=== PATIENT | male | born 1960 | race Caucasian/White ===

== ENCOUNTER 2024-05-06 19:03 | Observation (INO) | payer SELFPAY ==
--- NOTE | ~2024-05-06 | CT_ITS ---
EXAMINATION: CT facial bones w con DATE: 05/06/2024 23:31 INDICATION: Altered mental status. Recent mandible procedure. TECHNIQUE: Computed tomography (CT) of the facial bones and maxillofacial region was performed with 7 5 mL Omnipaque 350 intravenous contrast. Automated exposure control and iterative reconstruction tech [employer] were employed. The dose-length product was 697.20 mGy-cm. COMPARISON: None. FINDINGS: There are no pathologically enlarged lymph nodes. There is plaque in the proximal internal carotid arteries with less than 50% stenosis relative to normal distal artery lumen diameters. There is mild mucosal thickening in the paranasal sinuses. The patient is edentulous. There are dental impl ants in the mandible. No fracture. There is moderate cervical spondylosis. IMPRESSION: 1. No etiology for the patient's symptoms. Reviewed, dictated and finalized at location A.
--- NOTE | ~2024-05-06 | CT_ITS ---
EXAMINATION: CTA chest abdomen pelvis DATE: 05/07/2024 17:26 INDICATION: evaluate aneurysms . TECHNIQUE: Computed tomography angiography of the chest, abdomen, and pelvis was performed with 100 m L Omnipaque-350 intravenous contrast in the arterial phase. Automated exposure control and iterative reconstruction technique were employed. The dose-length product was 1857.94 mGy-cm. COMPARISON: A gap 05/07/2024 FINDINGS: CHEST: Thoracic aorta: Ectasia of the ascending aorta up to 4.4 cm. Ectasia of the descending aorta measurin g up to 3.3 cm. No dissection. Mild atherosclerotic calcifications. Lung parenchyma and airways: Motion artifact. Dependent atelectasis. Lungs and airways are otherwise clear. Thoracic inlet, axillae and chest wall: Mild symmetric gynecomastia. No thyroid mass. No axillary lym phadenopathy. Mediastinum: No mass or lymphadenopathy. Heart and pericardium: Aortic valve calcification. No pericardial effusion. Coronary artery calcifications: Mild. Pleura: No effusion or mass. Thoracic bones: No acute osseous finding in the chest. ABDOMEN/PELVIS: Liver: Enlarged. Biliary/Gallbladder: Distended gallbladder with mildly irregular wall thickening. No bile duct dilati on. Pancreas: Mild atrophy. Spleen: Normal. Adrenals:No mass. Kidneys: No suspicious mass, obstructing stone, or hydronephrosis. GI tract: No small or large bowel dilation. Normal appendix. Mesentery/Peritoneum: No ascites, mass, or free air. Retroperitoneum: No mass Atherosclerotic calcifications of intra-abdominal arterial vessels. Fusiform infrarenal abdominal aortic aneurysm with intraluminal thrombus, measuring up to 4.5 cm. Patent orig ins of the celiac, SMA, and bilateral renal arteries. Occluded DENISSE. Severe stenosis of the right comm on iliac artery. Severe stenosis at the origins of the left external and internal iliac arteries Pelvis: Urinary bladder wall thickening. Prostatomegaly. Dense material in the urinary bladder. Soft Tissues: Small uncomplicated umbilical hernia containing fat and a small loop of unobstructed marcy wel. Abdominopelvic bones: No acute osseous finding in the abdomen/pelvis. IMPRESSION: Ectasia of the ascending and descending aorta, measuring up to 4.4 cm and 3.3 cm respectively. Gallbladder hydrops, with mild irregular wall thickening. Correlate with biliary labs and symptoms of right upper quadrant pain. Hepatomegaly. 4.5 cm fusiform infrarenal abdominal aortic aneurysm. DENISSE occlusion. Severe stenoses at the origin of the right common iliac artery and the left iliac bifurcation. Urinary bladder wall thickening with hyperdense intraluminal material, presumably secondary to outlet compromise from prostatomegaly and contrast excretion. Correlate with urinalysis. Reviewed, dictated and finalized at location K. IMPRESSION: Ectasia of the ascending and descending aorta, measuring up to 4.4 cm and 3.3 c m respectively. Gallbladder hydrops, with mild irregular wall thickening. Correlate with biliar y labs and symptoms of right upper quadrant pain. Hepatomegaly. 4.5 cm fusiform infrarenal abdominal aortic aneurysm. DENISSE occlusion. Severe stenoses at the origin of the right common iliac artery and the left gordon ac bifurcation. Urinary bladder wall thickening with hyperdense intraluminal material, presumab ly secondary to outlet compromise from prostatomegaly and contrast excretion. C orrelate with urinalysis.
--- NOTE | ~2024-05-06 | CT_ITS ---
EXAMINATION: CT chest abdomen pelvis wo con DATE: 05/07/2024 07:42 INDICATION: Altered mental status. TECHNIQUE: Computed tomography (CT) of the chest, abdomen, and pelvis was performed without intraveno us contrast. Automated exposure control and iterative reconstruction technique were employed. The dos e-length product was 1190.16 mGy-cm. COMPARISON: None FINDINGS: CHEST CT: There is mild emphysema. The lungs demonstrate mild atelectasis. No pleural effusion. The heart size is normal. There are coronary artery calcifications. No pericardial effusion. There is mild bilateral gynecomastia. There is ectasia of ascending aorta measuring 4.7 cm. There is mild thoracic spondylos is. ABDOMEN/PELVIS CT: The liver and spleen are normal. The gallbladder is distended. The pancreas, adrenal glands, and kidn eys are normal. There is a 4.4 cm fusiform aneurysm of infrarenal aorta. There is calcified atheroscl erosis of the aorta and many of the other arteries. There are no dilated loops of bowel. The appendix is normal. There is an umbilical hernia containing nonobstructed small bowel. There are no pathologi rhiannon enlarged lymph nodes. There is no free intraperitoneal fluid. The prostate is mildly enlarged. There is severe lower lumbar spondylosis. IMPRESSION: 1. 4.4 cm fusiform aneurysm of infrarenal aorta. 2. Umbilical hernia containing nonobstructed small bowel. 3. Gallbladder distention, which may be secondary to fasting. Correlate with physical exam to exclude acute cholecystitis. Reviewed, dictated and finalized at location A. IMPRESSION: 1. 4.4 cm fusiform aneurysm of infrarenal aorta. 2. Umbilical hernia containing nonobstructed small bowel. 3. Gallbladder distention, which may be secondary to fasting. Correlate with ph ysical exam to exclude acute cholecystitis.
--- NOTE | ~2024-05-06 | US_ITS ---
EXAMINATION: US carotid duplex BIDATE: 05/07/2024 08:14 INDICATION: Stroke TECHNIQUE: Grayscale, color Doppler, and pulsed Doppler images of the cervical carotid arteries were obtained. The degree of vessel stenosis is placed in one of the following categories: normal, <50%, 5 0-69%, >=70% but less than near-occlusion, near-occlusion, or total occlusion. Note that percent sten osis relative to normal distal artery lumen diameter is indirectly measured from velocity measurement s as described by Pasquale, et al. Radiology 2003; 229:340-346. COMPARISON: None. FINDINGS: RIGHT: The right common carotid artery (CCA) peak systolic velocity (PSV) is 69 cm/s. The right internal car otid artery (ICA) PSV is 93 cm/s. The right ICA end-diastolic velocity (EDV) is 33 cm/s. The right IC A/CCA PSV ratio is 1.4. Grayscale and color Doppler images yield an estimate of <50% diameter reducti on from plaque in the ICA. The external carotid artery (ECA) PSV is 94 cm/s. There is antegrade flow in the right vertebral artery. LEFT: The left CCA PSV is 73 cm/s. The left ICA PSV is 66 cm/s. The left ICA EDV is 21 cm/s. The left ICA/C CA PSV ratio is 1.2. Grayscale and color Doppler images yield an estimate of <50% diameter reduction from plaque in the ICA. The ECA PSV is 72 cm/s. There is antegrade flow in the left vertebral artery. IMPRESSION: 1. <50% stenosis in the right internal carotid artery. 2. <50% stenosis in the left internal carotid artery. Reviewed, dictated and finalized at location B.
--- NOTE | ~2024-05-06 | XR_ITS ---
EXAMINATION: XR chest 1V portable DATE: 05/06/2024 23:15 INDICATION: Altered mental status. TECHNIQUE: A single frontal view of the chest was obtained on 2 radiographs. COMPARISON: None. FINDINGS: There is no pneumonia, pleural effusion, or pneumothorax. The heart size is normal. IMPRESSION: 1. No acute cardiopulmonary disease. Reviewed, dictated and finalized at location A.
--- NOTE | ~2024-05-06 | CT_ITS ---
EXAMINATION: CT brain wo con DATE: 05/06/2024 23:31 INDICATION: Altered mental status. TECHNIQUE: Computed tomography (CT) of the head was performed without intravenous contrast. The mA wa s adjusted according to patient size. Iterative reconstruction technique was employed. The dose-lengt h product was 681.00 mGy-cm. COMPARISON: None FINDINGS: There is no intracranial hemorrhage, acute infarction, or abnormal intracranial mass lesion . There are scattered areas of low attenuation in the cerebral white matter, which is within normal l imits for the patient's age. The ventricles are normal in size. The orbits are normal. There is mild mucosal thickening in the paranasal sinuses. There is a trace left mastoid effusion. IMPRESSION: 1. Normal aging brain. Reviewed, dictated and finalized at location A. IMPRESSION: 1. Normal aging brain.
--- NOTE | ~2024-05-06 | MR_ITS ---
EXAMINATION: MR brain/brain stem wo/w con DATE: 05/07/2024 08:48 INDICATION: Stroke. TECHNIQUE: Magnetic resonance imaging (MRI) of the brain and brainstem was performed without and with 20 mL ProHance intravenous contrast. COMPARISON: Head CT 05/06/2024 FINDINGS: There are scattered areas of nonspecific increased T2-weighted signal intensity in the cere bral white matter and armida. There is no intracranial hemorrhage, acute infarction, or abnormal intrac ranial mass lesion. The ventricles are normal in size. There is a trace left mastoid effusion. The pa ranasal sinuses are clear. The orbits are normal. IMPRESSION: 1. Mild nonspecific cerebral white matter disease and pontine disease, which likely represents chroni c small vessel ischemic disease. Reviewed, dictated and finalized at location [] IMPRESSION: 1. Mild nonspecific cerebral white matter disease and pontine disease, which penny smith represents chronic small vessel ischemic disease.
[2024-05-06 19:11] VITALS: BP 156/98; PULSE 109; RESP 14; TEMP 37.4; O2SAT 94
[2024-05-06 22:06] LABS: Basophils Percent Auto 0.3 % (0.2-1.2); Eosinophils Absolute Auto 0.3 K/mm3 (0-0.3); Eosinophils Percent Auto 2.3 % (0-4.4); Hematocrit 43.8 % (42.0-52.0); Hemoglobin 15.5 g/dL (14.0-18.0); Immature Granulocyte Absolute 0.07 K/mm3 (0.00-0.031); Immature Granulocyte Percent A 0.6 % (0-0.5); Lymphocytes Absolute Auto 1.87 K/mm3 (0.9-3.2); Lymphocytes Percent Auto 15.9 % (18.3-44.2); Mean Corpuscular HGB Conc 35.4 g/dl (32-36); Mean Corpuscular Hemoglobin 31.6 pg (26-34); Mean Corpuscular Volume 89.4 fl (80-100); Mean Platelet Volume 9.9 fl (7.4-10.4); Monocytes Absolute Auto 0.6 K/mm3 (0.1-0.6); Monocytes Percent Auto 4.9 % (2.6-8.5); Neutrophils Absolute Auto 8.9 K/mm3 (1.3-6.7); Platelet Count Result 167 k/mm3 (150-375); Red Cell Distribution Width 12.3 % (11.5-14.5); White Blood Count 11.7 K/mm3 (4.5-10.0)
--- NOTE | 2024-05-06 22:06 | ECG_ITS ---
Test Date: 2024-05-06 22:21:01 Measurements Intervals [place] Rate: 96 P: 12 CT: 176 QRS: -34 QRSD: 109 T: 39 QT: 342 QTc: 434 Interpretive Statements SINUS RHYTHM LEFT AXIS DEVIATION [QRS AXIS < -30] No previous ECG available for comparison Electronically Signed On 05-08-2024 15:22:37 CDT by Thelma Shearer M.D.
[2024-05-06 22:08] VITALS: BP 181/89; PULSE 95; RESP 15; O2SAT 95
[2024-05-06 22:16] LABS: Alanine Aminotransferase 54 U/L (6-50); Albumin Level 4.2 g/dL (3.5-5.1); Alkaline Phosphatase 72 U/L (38-126); Anion Gap 8 mmol/L (4-12); Aspartate Amino Transferase 23 U/L (17-59); Blood Urea Nitrogen 11 mg/dL (9-20); Calcium 8.9 mg/dL (8.4-10.2); Carbon Dioxide 26 mmol/L (22-30); Chloride 97 mmol/L (98-107); Estimated CRCL calculation 87 ml/min; Estimated Glomerular Filt Rate > 60; Glucose 122 mg/dL (65-110); Lipase 27 U/L (23-300); Potassium 4.6 mmol/L (3.4-5.0); Sodium 131 mmol/L (137-145)
[2024-05-06 22:18] LABS: Atypical Lymphocytes Present; Platelet Estimate Adequate (Adequate); Schistocytes None Seen
--- OUTSIDE RECORDS SUMMARY | 2024-05-06 22:41 | XMS_ITS | Clinical Summary ---
Author Organization [facility] Address [address] [place] [address] Care Team Providers Care Director Biologics Name Role Phone Unavailable Primary Care Provider Unavailabl e Social History Tobacco Use Types Packs/Day Years Used Date Smoking Tobacco: Never Assessed Sex and Gender Information Value Date Recorded Sex Assigned at Not on file Legal Sex Male 10:22 PM [employer]DEL [employer] Gender Identity Not on file Sexual Orientation Not on file Plan of Treatment Health Maintenance Due Date Last Done Comments Colorectal Cancer Screening Colonoscopy (10 Years) 1962 Annual Physical 1965 Hepatitis C 1980 DTaP, Tdap and Td Vaccines ( 1 - Tdap) 1981 Zoster Vaccines (1 of 2) 2012 COVID-19 Vaccine ( - 2023-2 5 season) 2023 Influenza Adult (#1) 2023 RSV Immunization or 60+ Years (1 - 1-dose 75+ series) 2037 Meningococcal B Vaccine Aged Out No l onger eligible based on patient's age to complete this topic Meningococcal Vaccine Aged Out No stefani rita eligible based on patient's age to complete this topic Pneumococcal Vaccine: Pediat rics (0 to 5 Years) and At-Risk Patients (6 to 64 Years) Aged Out No longer eligible b ased on patient's age to complete this topic RSV Immunizations Under 20 Months Aged Out No longer eligible based on patient's age to complete this topic
[2024-05-06] MEDS: SODIUM CHLORIDE 0.9% IV 1,000 ML 999 ML IV CONT (22:42)
[2024-05-06 23:23] LABS: Lactic Acid Reflex 1.2 mmol/L (0.7-2.0)
[2024-05-06 23:28] LABS: INR 1.1
[2024-05-06 23:29] LABS: Partial Thromboplastin Time 32.1 Seconds (22.3-36.8)
--- NOTE | 2024-05-06 23:39 | ED_ITS ---
HPI - Dizziness General Chief Complaint: Dizziness <Radha Coffey PA-C - Last Filed: 05/09/24 19:00> Stated Complaint: oral surgery 04/30, weakness, shaking <Radha Coffey PA-C - Last Filed: 05/09/24 19:00> Time Seen by Provider: 05/06/24 22:02 <Radha Coffey PA-C - Last Filed: 05/09/24 19:00> History of Present Illness HPI Narrative: 63-year-old male with a reported history of hypertension presents to the emergency department with his at bedside for dizziness and altered mental status. Patient had 4 lower teeth removed 6 days ago, 5 days ago he had permanent dentures placed on his lower gumline. The following day the patient developed dizziness, nausea and weakness. Per the over the past day the patient has become more altered and said bizarre things like ?I am going to go use the out house? instead of saying ?I am going to use the bathroom?. The patient states he feels dizzy when he goes from a lying down to sitting position and from a sitting to standing position. He reports nausea but no vomiting. His at bedside states he has not been drinking water. He endorses a low- grade fever today and generalized malaise. He is reporting pain to his lower teeth from the procedure but has not noted any drainage. He denies difficulty swallowing or breathing, chest pain or shortness of breath. He is endorsing a productive cough and states he started having body tremors yesterday and today. He denies abdominal pain, rash, dysuria or hematuria. Denies vision changes, focal numbness or weakness, head injury or trauma. Denies alcohol or drug use. Has been using ibuprofen and Tylenol for pain control postoperatively. <Radha Coffey PA-C - Last Filed: 05/09/24 19:00> Related Data Home Medications: Home Medications ?Medication ?Instructions ?Recorded ?Confirmed ?Last Taken ?Type chlorhexidine gluconate 0.12 % 15 ml PO BID 05/07/24 05/07/24 Unknown History mouthwash <Radha Coffey PA-C - Last Filed: 05/09/24 19:00> Allergies/Adverse Reactions: Allergies Allergy/AdvReac Type Severity Reaction Status Date / Time No Known Allergies Allergy Verified 05/06/24 19:17 <Radha Coffey PA-C - Last Filed: 05/09/24 19:00> Review of Systems 2 Review of Systems: All systems reviewed & are unremarkable except as noted in HPI and below <Radha Coffey PA-C - Last Filed: 05/09/24 19:00> [facility] Social History Social History: Social History Smoking packs per day: 0.5 Smoking cigarettes per day: 10.0 Years smoked: 45 Smoking pack-years: 22.50 Smoking status: Current every day smoker Tobacco type: cigarettes Alcohol intake: former Substance use: never Do You Feel Safe in your Home?: Yes Lack of Transportation: No Lack of Food: Never True Current Housing: I Have Housing Concerned About Future Housing: No Difficulty Paying Gas/Electric Bills: No Difficulty Paying for Meds: No Currently Unemployed: YES Education: High School Diploma/GED Difficulty w/ Childcare or Family Care: No Spiritual care concerns: No <Radha Coffey PA-C - Last Filed: 05/09/24 19:00> Exam 2 Narrative: GENERAL: Ill-appearing, flushed, warm to the touch HEAD: Normocephalic, atraumatic. EYES: PERRLA and EOMI. ENT: Nares clear, no rhinorrhea or epistaxis. Mucous membranes moist. Permanent dentures noted to the mandible with diffuse tenderness to the gum line, no area of fluctuance, no induration to the floor mouth or submandibular region, airway intact, posterior pharynx unremarkable, no trismus, no drooling or dysphasia NECK: Supple. No nuchal rigidity CHEST: Clear to auscultation. No respiratory distress. HEART: Regular rate and rhythm. No murmur heard. Normal peripheral pulses. ABDOMEN: Soft, nontender, nondistended, normal active bowel sounds. EXTREMITIES: Normal range of motion. No edema. SKIN: Warm, dry, no rash. NEURO: No focal deficits. Alert and oriented x1 - patient is unsure if he is in [place] or [place], states the year is 1924, when asked what month it is he states ?3? but is unable to tell me the name of the month. Cranial nerves 2-12 are intact. Strength out of 5 in BUE and BLE. Sensation intact throughout. Patient unable to follow directions to perform [id number] due to confusion. No pronator drift. <Radha Coffey PA-C - Last Filed: 05/09/24 19:00> Course TRAFFIC CONTROLLER CABLE/PA Physician Supervision PA signed patient out to me pending rest of work up to be completed; CXR unremarkable. I had been aware this patient was in [facility] and their presentation which was concerning for encephalopathy of unknown etiology. Initially there was report that patient and did not seem particularly concerned but on my bedside assessment does seem concerned that he is not himself and has not returned to baseline. COmplainign of a mild headache but no fever and moving neck. SHe notes his face became flushed and he was diaphoretic but no complaints. He had been on Augmentin after dental procedure, only 1 pill left. No evidence of abscess/obvious osteomyelitis. CT brain and facial imaging negative by report. No clear or obvious sign of infection. Discussed with [facility] conservation laborer hospitalist Dr Rivera; admission accepted. <Allison Mcdonough MD - Last Filed: 05/07/24 21:52> Vital Signs Vital signs: Vital Signs Temperature 99.3 F 05/06/24 19:11 Pulse Rate 109 H 05/06/24 19:11 Respiratory Rate 14 05/06/24 19:11 Blood Pressure 156/98 H 05/06/24 19:11 Pulse Oximetry 94 05/06/24 19:11 Oxygen Delivery Room Air 05/06/24 19:11 Temperature 97.9 F 05/09/24 04:45 Pulse Rate 95 05/09/24 08:08 Respiratory Rate 18 05/09/24 04:45 Blood Pressure 140/96 H 05/09/24 04:45 Pulse Oximetry 97 05/09/24 04:45 Oxygen Delivery Room Air 05/09/24 08:00 <Radha Coffey PA-C - Last Filed: 05/09/24 19:00> Vital Signs Temperature 99.3 F 05/06/24 19:11 Pulse Rate 109 H 05/06/24 19:11 Respiratory Rate 14 05/06/24 19:11 Blood Pressure 156/98 H 05/06/24 19:11 Pulse Oximetry 94 05/06/24 19:11 Oxygen Delivery Room Air 05/06/24 19:11 Temperature 97.9 F 05/09/24 04:45 Pulse Rate 95 05/09/24 08:08 Respiratory Rate 18 05/09/24 04:45 Blood Pressure 140/96 H 05/09/24 04:45 Pulse Oximetry 97 05/09/24 04:45 Oxygen Delivery Room Air 05/09/24 08:00 <Allison Mcdonough MD - Last Filed: 05/07/24 21:52> MDM - Dizziness MDM Narrative Medical decision making narrative: 63-year-old male with reported history of hypertension presents to the emergency department with at bedside for dizziness and nausea for 5 days, altered mental status started yesterday. Triage vitals remarkable for tachycardia 109 low-grade temp of 99.3?. Patient is flushed, warm to the touch and ill appearing on exam. He is A&O x1 which is new. No lateralizing deficits, exam significant for the above. Will obtain AMS/septic workup. Given recent oral procedure, will obtain CT facial bones with contrast to evaluate for deep space infection. His airway remains intact and he has no drooling or dysphasia. CBC with mild leukocytosis of 11.7, no bandemia. Chemistries with sodium of 131. CK is not elevated. TSH within normal limits. UA with 1+ ketones, no UTI. UDS positive for cannabinoids. ETOH less than 10. Viral swabs are negative. Lactic normal 1.2. EKG shows normal sinus rhythm, LAD, normal IN interval, normal QRS duration, normal QTC, no ischemic changes. Troponin is undetectable. CT brain shows no acute intracranial findings. CT facial bones with contrast shows no significant acute findings, no fluid collection. Patient was given a L fluids. He did have an episode of emesis in the ED and was given Zofran with improvement. He continues to remain altered. Concern for encephalopathy but currently do not have a source. Sign-out to Dr. Mcdonough pending stat-rad read of CXR. <Radha Coffey PA-C - Last Filed: 05/09/24 19:00> Lab Data Result diagrams: 05/09/24 04:37 05/09/24 04:37 <Radha Coffey PA-C - Last Filed: 05/09/24 19:00> Labs: Lab Results 05/06/24 05/06/24 05/06/24 Range/Units 21:59 22:55 23:46 WBC 11.7 H (4.5-10.0) K/mm3 RBC 4.90 (4.6-6.20) M/mm3 Hgb 15.5 (14.0-18.0) g/dL Hct 43.8 (42.0-52.0) % MCV 89.4 (80-100) fl MCH 31.6 (26-34) pg MCHC 35.4 (32-36) g/dl RDW 12.3 (11.5-14.5) % Plt Count 167 (150-375) k/mm3 MPV 9.9 (7.4-10.4) fl Immature Gran % (Auto) 0.6 H (0-0.5) % Neut % (Auto) 76.0 H (45.5-73.1) % Lymph % (Auto) 15.9 L (18.3-44.2) % [place] % (Auto) 4.9 (2.6-8.5) % Eos % (Auto) 2.3 (0-4.4) % Baso % (Auto) 0.3 (0.2-1.2) % Lymph # (Auto) 1.87 (0.9-3.2) K/mm3 [place] # (Auto) 0.6 (0.1-0.6) K/mm3 Eos # (Auto) 0.3 (0-0.3) K/mm3 Baso # (Auto) 0.0 (0.0-0.1) K/mm3 Abs Immat Gran (auto) 0.07 H (0.00-0.031) K/mm3 Absolute Neuts (auto) 8.9 H (1.3-6.7) K/mm3 Absolute Nucleated RBC 0.000 (0.0-0.012) K/mm3 Band Neutrophils % Not Reportable Nucleated RBC % 0.0 (0.0-0.2) % Atypical Lymphocytes Present Platelet Estimate Adequate (Adequate) Schistocytes None seen PT 14.0 (11.1-14.7) Seconds INR 1.1 APTT 32.1 (22.3-36.8) Seconds Sodium 131 L (137-145) mmol/L Potassium 4.6 (3.4-5.0) mmol/L Chloride 97 L (98-107) mmol/L Carbon Dioxide 26 (22-30) mmol/L Anion Gap 8 (4-12) mmol/L BUN 11 (9-20) mg/dL Creatinine 1.00 (0.7-1.3) mg/dL Estim Creat Clear Calc 87 ml/min Estimated GFR > 60 (59 - ) Glucose 122 H (65-110) mg/dL Lactic Acid 1.2 (0.7-2.0) mmol/L Calcium 8.9 (8.4-10.2) mg/dL Total Bilirubin 1.0 (0.2-1.3) mg/dL AST 23 (17-59) U/L ALT 54 H (6-50) U/L Alkaline Phosphatase 72 (38-126) U/L Total Creatine Kinase 32 L (55-170) U/L Troponin I < 0.012 (0.000-0.034) ng/mL Total Protein 7.0 (6.3-8.2) g/dL Albumin 4.2 (3.5-5.1) g/dL Lipase 27 (23-300) U/L TSH 0.820 (0.465-4.680) uIU/mL Urine Color Yellow (Yellow) Urine Appearance Clear (Clear) Urine pH 7.5 (5.0-9.0) Ur Specific [place] 1.023 (1.001-1.035) Urine Protein Negative (Negative) mg/dL Urine Glucose (UA) Negative (Negative) mg/dL Urine Ketones 1+ H (Negative) mg/dL Ur Blood (Man) Negative (Negative) Urine Nitrate Negative (Negative) Urine Bilirubin Negative (Negative) Urine Urobilinogen 1.0 (<2.0) mg/dL Leukocyte Esterase Rfl Negative (Negative) ANTOINE/UL Urine Opiates Screen Negative (Negative) Urine Methadone Screen Negative (Negative) Ur Barbiturates Screen Negative (Negative) Ur Phencyclidine Scrn Negative (Negative) Ur Amphetamine Screen Negative (Negative) U Benzodiazepines Scrn Negative (Negative) Urine Cocaine Screen Negative (Negative) U Cannabinoids Screen Positive A (Negative) Ethyl Alcohol < 10 (<10) mg/dL Influenza A (RT-PCR) Negative (Negative) Influenza B (RT-PCR) Negative (Negative) RSV (RT-PCR) Negative (Negative) SARS-CoV-2 RNA (RT-PCR) Negative (Negative) <Radha Coffey PA-C - Last Filed: 05/09/24 19:00> Lab Results 05/06/24 05/06/24 05/06/24 Range/Units 21:59 22:55 23:46 WBC 11.7 H (4.5-10.0) K/mm3 RBC 4.90 (4.6-6.20) M/mm3 Hgb 15.5 (14.0-18.0) g/dL Hct 43.8 (42.0-52.0) % MCV 89.4 (80-100) fl MCH 31.6 (26-34) pg MCHC 35.4 (32-36) g/dl RDW 12.3 (11.5-14.5) % Plt Count 167 (150-375) k/mm3 MPV 9.9 (7.4-10.4) fl Immature Gran % (Auto) 0.6 H (0-0.5) % Neut % (Auto) 76.0 H (45.5-73.1) % Lymph % (Auto) 15.9 L (18.3-44.2) % [place] % (Auto) 4.9 (2.6-8.5) % Eos % (Auto) 2.3 (0-4.4) % Baso % (Auto) 0.3 (0.2-1.2) % Lymph # (Auto) 1.87 (0.9-3.2) K/mm3 [place] # (Auto) 0.6 (0.1-0.6) K/mm3 Eos # (Auto) 0.3 (0-0.3) K/mm3 Baso # (Auto) 0.0 (0.0-0.1) K/mm3 Abs Immat Gran (auto) 0.07 H (0.00-0.031) K/mm3 Absolute Neuts (auto) 8.9 H (1.3-6.7) K/mm3 Absolute Nucleated RBC 0.000 (0.0-0.012) K/mm3 Band Neutrophils % Not Reportable Nucleated RBC % 0.0 (0.0-0.2) % Atypical Lymphocytes Present Platelet Estimate Adequate (Adequate) Schistocytes None seen PT 14.0 (11.1-14.7) Seconds INR 1.1 APTT 32.1 (22.3-36.8) Seconds Sodium 131 L (137-145) mmol/L Potassium 4.6 (3.4-5.0) mmol/L Chloride 97 L (98-107) mmol/L Carbon Dioxide 26 (22-30) mmol/L Anion Gap 8 (4-12) mmol/L BUN 11 (9-20) mg/dL Creatinine 1.00 (0.7-1.3) mg/dL Estim Creat Clear Calc 87 ml/min Estimated GFR > 60 (59 - ) Glucose 122 H (65-110) mg/dL Lactic Acid 1.2 (0.7-2.0) mmol/L Calcium 8.9 (8.4-10.2) mg/dL Total Bilirubin 1.0 (0.2-1.3) mg/dL AST 23 (17-59) U/L ALT 54 H (6-50) U/L Alkaline Phosphatase 72 (38-126) U/L Total Creatine Kinase 32 L (55-170) U/L Troponin I < 0.012 (0.000-0.034) ng/mL Total Protein 7.0 (6.3-8.2) g/dL Albumin 4.2 (3.5-5.1) g/dL Lipase 27 (23-300) U/L TSH 0.820 (0.465-4.680) uIU/mL Urine Color Yellow (Yellow) Urine Appearance Clear (Clear) Urine pH 7.5 (5.0-9.0) Ur Specific [place] 1.023 (1.001-1.035) Urine Protein Negative (Negative) mg/dL Urine Glucose (UA) Negative (Negative) mg/dL Urine Ketones 1+ H (Negative) mg/dL Ur Blood (Man) Negative (Negative) Urine Nitrate Negative (Negative) Urine Bilirubin Negative (Negative) Urine Urobilinogen 1.0 (<2.0) mg/dL Leukocyte Esterase Rfl Negative (Negative) ANTOINE/UL Urine Opiates Screen Negative (Negative) Urine Methadone Screen Negative (Negative) Ur Barbiturates Screen Negative (Negative) Ur Phencyclidine Scrn Negative (Negative) Ur Amphetamine Screen Negative (Negative) U Benzodiazepines Scrn Negative (Negative) Urine Cocaine Screen Negative (Negative) U Cannabinoids Screen Positive A (Negative) Ethyl Alcohol < 10 (<10) mg/dL Influenza A (RT-PCR) Negative (Negative) Influenza B (RT-PCR) Negative (Negative) RSV (RT-PCR) Negative (Negative) SARS-CoV-2 RNA (RT-PCR) Negative (Negative) <Allison Mcdonough MD - Last Filed: 05/07/24 21:52> Imaging Data Radiologist's impression: CXR 1 view Stat Rad: No acute cardiopulmonary process. <Allison Mcdonough MD - Last Filed: 05/07/24 21:52> Discharge Plan Discharge Clinical Impression: Encephalopathy <Radha Coffey PA-C - Last Filed: 05/09/24 19:00> Patient Disposition: Still a Patient <Radha Coffey PA-C - Last Filed: 05/09/24 19:00> Condition: Stable <Radha Coffey PA-C - Last Filed: 05/09/24 19:00>
[2024-05-06 23:43] LABS: Influenza A QL RT-PCR Negative (Negative); Influenza B QL RT-PCR Negative (Negative); RSV RNA, RT-PCR Negative (Negative); SARS-CoV-2 RNA PCR Negative (Negative)
[2024-05-06 23:56] LABS: Add Urine Microscopic? NO; Appearance Urine Clear (Clear); Bilirubin Urine Negative (Negative); Blood Urine Negative (Negative); Color Urine Yellow (Yellow); Glucose Urine UA Negative (Negative); Ketones Urine 1+ mg/dL (Negative); Leukocyte Esterase Ur Negative LEU/UL (Negative); Nitrate Urine Negative (Negative); Protein Urine Negative (Negative); Specific Grav Ur 1.023 (1.001-1.035); pH Urine 7.5 (5.0-9.0)
[2024-05-07] VITALS (12 sets, daily range): BP systolic 140–180; BP diastolic 76–106; PULSE 75–93; RESP 14–18; TEMP 36.4–36.9; O2SAT 92–100; BMI 32.5
--- NOTE | 2024-05-07 | ECHO_ITS ---
Patient Info Name: Richard Huizar Age: 63 years : 1960 Gender: Male Ht: 72 in Wt: 239 lbs BSA: 2.38 m2 HR: 88 bpm BP: 180 / 91 mmHg Technical Quality: Fair Exam Date: 05/07/2024 10:36 AM Exam Location: Echo Lab Patient Status: Outpatient Admit Date: 05/07/2024 Staff Ordering Physician: Jerel Rivera MD Assurance Sourcing Manager: Josefa Castorena RDCS Attending Provider: Dianna Covington PA-C Exam Type: CA echo doppler color flow Study Info Indications - Stroke Complete two-dimensional, color flow and Doppler transthoracic echocardiogram is performed. Summary 1. Complete two-dimensional, color flow and Doppler transthoracic echocardiogram is performed. 2. The left ventricle is normal in size and systolic function. There is left ventricular remodeling. The left ventricular ejection fraction is visually estimated to be 55-60%. 3. The right ventricle is normal in size and systolic function. 4. The aortic valve is not well visualized but is probable bicuspid. There is no aortic stenosis or aortic regurgitation. 5. The aortic root at the level of the sinus of Valsalva is dilated and measures 4.7 cm in diameter. Recommend further imaging such as CTA and follow-up. Left Ventricle The left ventricle is normal in size and systolic function. There is left ventricular remodeling. The left ventricular ejection fraction is visually estimated to be 55-60%. Right Ventricle The right ventricle is normal in size and systolic function. Left Atria The left atrium is normal size. Right Atria The right atrium is normal size. Aortic Valve The aortic valve is not well visualized but is probable bicuspid. There is no aortic stenosis or aortic regurgitation. Pulmonic Valve The pulmonic valve is not well visualized. There is no pulmonic valve regurgitation by color Doppler. Mitral Valve The mitral valve is sclerotic but opens well. There is no mitral regurgitation. Tricuspid Valve The tricuspid valve is normal. There is trace tricuspid regurgitation. Pericardium/Pleural Pericardium is normal in appearance with no evidence for significant pericardial effusion. Inferior Vena Cava Inferior vena cava is not well visualized. Aorta The aortic root at the level of the sinus of Valsalva is dilated and measures 4.7 cm in diameter. Recommend further imaging such as CTA and follow-up. Left Ventricular Outflow Tract Name Value Normal LVOT 2D LVOT Diameter 2.4 cm LVOT Doppler LVOT Peak Gradient 5 mmHg LVOT Mean Gradient 3 mmHg LVOT VTI 24 cm LVOT VTI/AV VTI Ratio 0.6 LVOT Stroke Volume 110 ml LVOT CO 24.6 l/min LVOT CI 10.3 l/min/m2 Pulmonic Valve Name Value Normal PV Doppler PV Peak Gradient 3 mmHg Mitral Valve Name Value Normal MV Doppler MV Decel [place] 306 cm/s2 MV PHT 60 ms MV Area (PHT) 3.6 cm2 4.0-5.0 MV Diastolic Function MV E Peak Velocity 64 cm/s MV A Peak Velocity 87 cm/s MV E/A 0.7 MV Decel Time 208 ms MV Annular TDI MV E/e' (Septal) 10.2 <=8.0 MV E/e' (Lateral) 7.1 <=8.0 MV E/e' (Average) 8.6 Tricuspid Valve Name Value Normal TV Regurgitation Doppler TR Peak Velocity 200 cm/s TR Peak Gradient 14 mmHg Estimated PAP/RSVP RA Pressure 10 mmHg <=5 PA Systolic Pressure 26 mmHg <36 RV Systolic Pressure 26 mmHg <36 Aorta Name Value Normal Ascending Aorta Ao Root Diameter (MM) 4.7 cm Ao Root Diam Index (MM) 2.0 cm/m2 Aortic Valve Name Value Normal AV Doppler AV Peak Velocity 201 cm/s AV Peak Gradient 16 mmHg AV Mean Gradient 10 mmHg AV VTI 40 cm AV Area (Cont Eq VTI) 2.7 cm2 >=3.0 AV Area (Cont Eq Cory) 2.6 cm2 AV Regurgitation 2D LVOT Area 4.6 cm2 Ventricles Name Value Normal LV Dimensions 2D/MM IVS Diastolic Thickness (2D) 1.3 cm 0.6-1.0 LVID Diastole (2D) 4.0 cm 4.2-5.8 LVIW Diastolic Thickness (2D) 1.3 cm 0.6-1.0 LVID Systole (2D) 3.0 cm 2.5-4.0 LVOT Diameter 2.4 cm LV Mass (2D Cubed) 184.01 g 88.00-224.00 LV Mass Index (2D Cubed) 77 g/m2 49-115 Relative Wall Thickness (2D) 0.64 LV Fractional Shortening/Ejection Fraction 2D/MM LV Fractional Shortening (2D) 24 % 25-43 LV EF (2D Teicholz) 49 % 52-72 LV Diastolic Volume (2C MOD) 81 ml LV EF (2C MOD) 67 % RV Dimensions 2D/MM RVID Diastole (2D) 4.2 cm 2.5-3.5 Atria Name Value Normal LA Dimensions LA Dimension (MM) 2.2 cm 3.0-4.1 LA Volume (4C A-L) 33 ml LA Volume (BP A-L) 39 ml RA Dimensions RA Area (4C) 18.7 cm2 <=18.0 Report Signatures
[2024-05-07 00:03] LABS: Creatine Kinase 32 U/L (55-170)
[2024-05-07 00:12] LABS: Amphetamine Screen Urine Negative (Negative); Barbiturate Screen Urine Negative (Negative); Benzodiazepines Screen Urine Negative (Negative); Cannabinoid Screen Urine Positive (Negative); Cocaine Screen Urine Negative (Negative); Methadone Screen Urine Negative (Negative); Opiate Screen Urine Negative (Negative); Phencyclidine Screen Urine Negative (Negative)
[2024-05-07 00:16] LABS: Troponin I < 0.012 ng/mL (0.000-0.034)
[2024-05-07] MEDS: ONDANSETRON INJ 4 MG/2 ML VIAL IV PUSH (00:43)
[2024-05-07 02:08] LABS: Ethanol < 10 mg/dL (<10)
[2024-05-07] MEDS: ACETAMINOPHEN 500 MG TABLET 1000 MG PO (03:16)
--- NOTE | 2024-05-07 05:28 | PM.IMHP ---
H&P: HPI History of Present Illness Date/Time: 05/07/24 05:28 Chief Complaint: AMS and Gait instability Narrative: 63 yo male with no significant PMH but had oral surgery with dental implants on April 30 who presented to the Er on account AMS and gait instability. present at bedside noted that patient has been having poor oral intake since the surgery and at about 6pm Tuesday he started having AMS and gait instability. Patient specifically denies any focal weakness, no chest pain, cough, fever, abd pain, vomiting, diarrhea, dysuria or lightheadedness. ER eval notable for T 99.3, ME 109, RR 14, Saturating 94% on room air, BP 158/98. labs notable for WBC 11.7, Na 131, UA unremarkable, UDS positive for cannabinoids CT head and CT maxillofacial unremarkable, CXR unremarkable Admitted for further eval and care Review of Systems Review of Systems: all other systems were reviewed ad negative except as noted in the HPI above [facility] Social History Social History Smoking packs per day: 0.5 Smoking cigarettes per day: 10.0 Years smoked: 45 Smoking pack-years: 22.50 Smoking status: Current every day smoker Tobacco type: cigarettes Alcohol intake: former Substance use: never Do You Feel Safe in your Home?: Yes Lack of Transportation: No Lack of Food: Never True Current Housing: I Have Housing Concerned About Future Housing: No Difficulty Paying Gas/Electric Bills: No Difficulty Paying for Meds: No Currently Unemployed: YES Education: High School Diploma/GED Difficulty w/ Childcare or Family Care: No Spiritual care concerns: No Meds Home Medications and Allergies Home Medications ?Medication ?Instructions ?Recorded ?Confirmed ?Type chlorhexidine gluconate 0.12 % 15 ml PO BID 05/07/24 05/07/24 History mouthwash Allergies Allergy/AdvReac Type Severity Reaction Status Date / Time No Known Allergies Allergy Verified 05/06/24 19:17 Vital Signs Vital Signs - 24 hr 05/06/24 19:11 05/06/24 22:08 05/07/24 01:27 Temperature 99.3 F Pulse Rate 109 H 95 93 Respiratory Rate 14 15 17 Blood Pressure 156/98 H 181/89 H 140/106 H Pulse Oximetry 94 95 95 Oxygen Delivery Room Air 05/07/24 01:31 05/07/24 03:45 Temperature 98.1 F Pulse Rate 87 Respiratory Rate 18 Blood Pressure 161/83 H 146/76 H Pulse Oximetry 94 Oxygen Delivery Exam Narrative: General: alert and comfortable Eyes: EOMI, PERRLA ENNT External ears normal, Neck is supple, no masses, Respiratory systems: Clear to auscultation Cardiovascular S1, S2, normal rhythm, no murmur, rub, or gallop; no thrill or palpable murmurs on palpation. Gastrointestinal: soft, non-tender, and non-distended abdomen with no masses; BS present Skin: no rash, lesions, ulcerations, subcutaneous nodules or induration Musculoskeletal: no abnormality and no tenderness, normal ROM Neurologic: Alert and oriented x2 knows the years but not month and day, non focal Mental Status Exam: normal affect H&P: Results Labs Labs: Short CBC 05/06/24 Range/Units 21:59 WBC 11.7 H (4.5-10.0) K/mm3 Hgb 15.5 (14.0-18.0) g/dL Hct 43.8 (42.0-52.0) % Plt Count 167 (150-375) k/mm3 BMP 05/06/24 21:59 Sodium 131 L Potassium 4.6 Chloride 97 L Carbon Dioxide 26 BUN 11 Creatinine 1.00 Glucose 122 H Calcium 8.9 Cardiac Enzymes 05/06/24 Range/Units 21:59 Total Creatine Kinase 32 L (55-170) U/L Troponin I < 0.012 (0.000-0.034) ng/mL Liver Function 05/06/24 Range/Units 21:59 Total Bilirubin 1.0 (0.2-1.3) mg/dL AST 23 (17-59) U/L ALT 54 H (6-50) U/L Alkaline Phosphatase 72 (38-126) U/L Albumin 4.2 (3.5-5.1) g/dL Urine 05/06/24 Range/Units 23:46 Urine Color Yellow (Yellow) Urine Appearance Clear (Clear) Urine pH 7.5 (5.0-9.0) Ur Specific [place] 1.023 (1.001-1.035) Urine Protein Negative (Negative) mg/dL Urine Glucose (UA) Negative (Negative) mg/dL Assessment and Plan Assessment and plan (1) Encephalopathy: Code(s): G93.40 - Encephalopathy, unspecified Status: Acute Plan Encephalopathy R/o Stroke vs infection vs dehydration CT head and maxillofacial negative, CXR unremarkable alert and oriented x2 WBC 11.7 MRI brain, CT chest and AP, carotid duplex, ECHO pending A1c, Lipid panel, B12/Folate pending tentatively started on Aspirin, Lipitor, IVF PT/OT/ST neurology consulted s/p recent dental implant CT maxillofacial no acute changes resident Radiologists overreading report Continue Augmentin Tobacco use Smokes 1PPD counseled about cessation DVT prophylaxis on Sq Lovenox Full code Surrogate decision maker, , Shanae Huizar Hospitalist [facility] Advance Care Plan I have confirmed that the patient's Advanced Care Plan is present, code status is documented, or surrogate decision maker is listed in patient medical record.: Yes Medication Reconciliation I have utilized all available resources to obtain, update and review the patients current medications (includes all prescriptions, OTC, herbals, cannabis, and nutritional supplements).: Yes
--- NOTE | 2024-05-07 05:32 | ADMGEN ---
This patient, Richard Huizar, was admitted to Medical Room 245-. Patient/family oriented to hospital policies and general routines including ID bracelet, bed and alarms, visiting hours, pain management, procedures, bathroom and other care routines, personal items, smoking policy, room service/diet, and visiting hours. Information on how to activate the Rapid Response Team has been discussed. Patient/Family are encouraged to report perceived risks to care and to ask questions if they do not understand what they are told or what they should do.
[2024-05-07] MEDS: SODIUM CHLORIDE 0.9% IV 1,000 ML 75 ML IV CONT (06:33)
[2024-05-07 06:48] LABS: Cholesterol 189 mg/dL (0-200); HDL Direct 27 mg/dL; Triglycerides 140 mg/dL (<150)
--- NOTE | 2024-05-07 07:00 | P.PNIM_ITS ---
Progress Note: A&P Assessment and Plan (1) Encephalopathy: Code(s): G93.40 - Encephalopathy, unspecified Status: Acute Assessment and Plan: Recent dental procedure with dental implants on april 30 Possible etiology includes TIA vs stroke vs infection vs dehydration - A1c, Lipid panel WNL, Folate WNL, B12 low given IM x1 and started on supplementation 1000 mg daily - Viral panel negative, UA unremarkable, UDS positive for cannabinoids - CT head and maxillofacial negative, CXR unremarkable - Carotid duplex: < 50% stenosis of bilateral internal carotid artery - MRI: Mild nonspecific cerebral white matter disease and pontine disease, which likely represents chronic small vessel ischemic disease. - Echo: LVEF 55-60% with aortic root measuring 4.7 in diameter - CT chest/abdomen/pelvis: Ectasia of ascending aorta measuring 4.7 cm. 4.4 cm fusiform aneurysm of infrarenal aorta. Umbilical hernia containing nonobstructed small bowel. Gallbladder distention, which may be secondary to fasting - Started on asa, Lipitor and IVF - Started on Augmentin for possible oral infection related to recent dental procedure. - Monitor CBC, CMP, magnesium, troponin, and lipid profile - Monitor blood pressure, allow for permissive hypertension. - Telemetry monitoring - Monitor blood glucose - PT/OT eval and treat - Neurology consulted, appreciate assistance and recommendations (2) Aortic aneurysm: Code(s): I71.9 - Aortic aneurysm of unspecified site, without rupture Status: Acute Assessment and Plan: - Echo: LVEF 55-60% with aortic root measuring 4.7 in diameter. Recommending CTA. - CT chest/abdomen/pelvis: Ectasia of ascending aorta measuring 4.7 cm. 4.4 cm fusiform aneurysm of infrarenal aorta. - CTA chest abdomen pelvis ordered to further evaluate aneurysms - Patient has been hypertensive since admission with BP in the 40-170s systolic, per uptodate beta blockers are suggested to limit further exortic expansion Started on metoprolol 12.5 mg BID, remains on lipitor 40 mg daily for cocurrent TIA concern - Patient will require vascular follow up at discharge (3) Tobacco use: Code(s): Z72.0 - Tobacco use Status: Acute Assessment and Plan: Smokes 1PPD counseled about cessation Time Spent With Patient Time with patient: 25 - 35 minutes Subjective Date/time seen: 05/07/24 07:00 Interval history: 63 year old male with no significant past medical history but had recent oral surgery with dental implants on April 30 who presented to the hospital for altered mental status and gait instability. Patient is pleasant lying comfortably in bed with at bedside. He is alert and oriented at time of assessment however his slowed answer. Patient is noted to have a slight tremor that he states has been present for about a week and notes has been improving. He has no other complaints at this time denying chest pain, shortness a breath, palpitations, nausea/vomiting, and abdominal pain. Discussed patient with his oral surgeon who states that patient was to be on antibiotics following the procedure. Per patient's patient was not taking antibiotics following the dental implant. Patient remains on Augmentin at this time which per oral surgeon was when he was to be discharged on following the procedure. Will further discuss patient tomorrow with the oral surgeon. Review of Systems Review of Systems: All systems reviewed & are unremarkable except as noted in HPI and below Exam Narrative: AF General: well nourished, well-developed male in no acute respiratory distress who is nontoxic appearing, lying semi recumbent in bed. HEENT: Normocephalic. Atraumatic. Pupils equal round reactive to light. Extraocular movement intact. Sclera clear and anicteric. Nares patent. No oral lesions. Moist mucous membranes. Tongue is midline. Palate stormy symmetrically. No facial asymmetry. Neck: Neck was supple. No dominant adenopathy, thyromegaly or masses. 2+ carotid upstrokes without bruits. Chest: Lungs are clear to auscultation bilaterlly. No wheezes or crackles. CV: Heart was regular rate and rhythm. S1/S2. No murmurs, gallops, or rubs. Abd: Abdomen was soft. Nontender. Nondistended. Postive bowel sounds. No organomegaly or masses. Ext: No clubbing, cyanosis, or edema. 2+ DP pulses bilaterally. Neuro: Patient is alert and oriented x4. Strenth is 5/5 in both upper and lower extremities. Cranial nerves 2-12 are intact. Speech is clear. Psych: Normal nood and affect. Patient is pleasant and cooperative. Skin: Warm and dry. No rashes noted. Objective Data Vital Signs Vital Signs: Vital Signs - 24 hr 05/06/24 19:11 05/06/24 22:08 05/07/24 01:27 Temperature 99.3 F Pulse Rate 109 H 95 93 Respiratory Rate 14 15 17 Blood Pressure 156/98 H 181/89 H 140/106 H Pulse Oximetry 94 95 95 Oxygen Delivery Room Air 05/07/24 01:31 05/07/24 03:45 05/07/24 05:58 Temperature 98.1 F 98.2 F Pulse Rate 87 75 Respiratory Rate 18 16 Blood Pressure 161/83 H 146/76 H 180/91 H Pulse Oximetry 94 94 Oxygen Delivery Intake/Output Intake/Output: Intake & Output 05/04/24 05/05/24 05/06/24 05/07/24 23:59 23:59 23:59 23:59 Intake Total 1000 Balance 1000 Meds/Results Medications: Active Medications Generic Name Dose Route Start Last Admin Trade Name Freq PRN Reason Stop Dose Admin Acetaminophen 650 mg 05/07/24 04:34 Acetaminophen 325 Mg Tablet PO Q4H PRN Mild Pain (1-3) or Fever Aspirin 81 mg 05/07/24 09:00 Aspirin 81 Mg Enteric Tablet PO QAM [facility] Atorvastatin Calcium 40 mg 05/07/24 09:00 Atorvastatin 40 Mg Tablet PO DAILY [facility] Enoxaparin Sodium 40 mg 05/07/24 09:00 Enoxaparin 40 Mg/0.4 Ml Syringe SUB-Q DAILY [facility] Enoxaparin Sodium 40 mg 05/07/24 09:00 Enoxaparin 40 Mg/0.4 Ml Syringe SUB-Q DAILY [facility] Sodium Chloride 1,000 mls @ 75 mls/hr 05/07/24 06:00 05/07/24 06:33 Normal Saline Iv IV CONT 75 mls/hr .[id number] [facility] Administration Ondansetron HCl 4 mg 05/07/24 04:34 Ondansetron Inj 4 Mg/2 Ml Vial IV PUSH Q4H PRN Nausea Perflutren Lipid Microsphere 0 ml 05/07/24 05:24 Perflutren Lipid Microspheres 1.5 Ml Vial Diluted To 10 Ml Total Volume IV PUSH 05/10/24 05:25 ONCE PRN adequate visualization Protocol Radiology Results: ITS Impressions Chest X-Ray 05/07/24 05:46 IMPRESSION: 1. No acute cardiopulmonary disease. Head CT 05/07/24 05:54 IMPRESSION: 1. Normal aging brain. Face CT 05/07/24 06:45 IMPRESSION: 1. No etiology for the patient's symptoms. Labs Labs: Laboratory Results - last 24 hr 05/06/24 05/06/24 05/06/24 21:59 22:55 23:46 WBC 11.7 H RBC 4.90 Hgb 15.5 Hct 43.8 MCV 89.4 MCH 31.6 MCHC 35.4 RDW 12.3 Plt Count 167 MPV 9.9 Immature Gran % (Auto) 0.6 H Neut % (Auto) 76.0 H Lymph % (Auto) 15.9 L [place] % (Auto) 4.9 Eos % (Auto) 2.3 Baso % (Auto) 0.3 Lymph # (Auto) 1.87 [place] # (Auto) 0.6 Eos # (Auto) 0.3 Baso # (Auto) 0.0 Abs Immat Gran (auto) 0.07 H Absolute Neuts (auto) 8.9 H Absolute Nucleated RBC 0.000 Band Neutrophils % Not Reportable Nucleated RBC % 0.0 Atypical Lymphocytes Present Platelet Estimate Adequate Schistocytes None seen PT 14.0 INR 1.1 APTT 32.1 Sodium 131 L Potassium 4.6 Chloride 97 L Carbon Dioxide 26 Anion Gap 8 BUN 11 Creatinine 1.00 Estim Creat Clear Calc 87 Estimated GFR > 60 Glucose 122 H Lactic Acid 1.2 Calcium 8.9 Total Bilirubin 1.0 AST 23 ALT 54 H Alkaline Phosphatase 72 Total Creatine Kinase 32 L Troponin I < 0.012 Total Protein 7.0 Albumin 4.2 Triglycerides Cholesterol HDL Direct Lipase 27 TSH 0.820 Urine Color Yellow Urine Appearance Clear Urine pH 7.5 Ur Specific [place] 1.023 Urine Protein Negative Urine Glucose (UA) Negative Urine Ketones 1+ H Ur Blood (Man) Negative Urine Nitrate Negative Urine Bilirubin Negative Urine Urobilinogen 1.0 Leukocyte Esterase Rfl Negative Urine Opiates Screen Negative Urine Methadone Screen Negative Ur Barbiturates Screen Negative Ur Phencyclidine Scrn Negative Ur Amphetamine Screen Negative U Benzodiazepines Scrn Negative Urine Cocaine Screen Negative U Cannabinoids Screen Positive A Ethyl Alcohol < 10 Influenza A (RT-PCR) Negative Influenza B (RT-PCR) Negative RSV (RT-PCR) Negative SARS-CoV-2 RNA (RT-PCR) Negative 05/07/24 06:31 WBC RBC Hgb Hct MCV MCH MCHC RDW Plt Count MPV Immature Gran % (Auto) Neut % (Auto) Lymph % (Auto) [place] % (Auto) Eos % (Auto) Baso % (Auto) Lymph # (Auto) [place] # (Auto) Eos # (Auto) Baso # (Auto) Abs Immat Gran (auto) Absolute Neuts (auto) Absolute Nucleated RBC Band Neutrophils % Nucleated RBC % Atypical Lymphocytes Platelet Estimate Schistocytes PT INR APTT Sodium Potassium Chloride Carbon Dioxide Anion Gap BUN Creatinine Estim Creat Clear Calc Estimated GFR Glucose Lactic Acid Calcium Total Bilirubin AST ALT Alkaline Phosphatase Total Creatine Kinase Troponin I Total Protein Albumin Triglycerides 140 Cholesterol 189 HDL Direct 27 Lipase TSH Urine Color Urine Appearance Urine pH Ur Specific [place] Urine Protein Urine Glucose (UA) Urine Ketones Ur Blood (Man) Urine Nitrate Urine Bilirubin Urine Urobilinogen Leukocyte Esterase Rfl Urine Opiates Screen Urine Methadone Screen Ur Barbiturates Screen Ur Phencyclidine Scrn Ur Amphetamine Screen U Benzodiazepines Scrn Urine Cocaine Screen U Cannabinoids Screen Ethyl Alcohol Influenza A (RT-PCR) Influenza B (RT-PCR) RSV (RT-PCR) SARS-CoV-2 RNA (RT-PCR) Quality VTE Prophylaxis VTE prophylaxis: pharmacologic ordered
[2024-05-07 07:20] LABS: LDL Cholesterol Direct 128 mg/dL
[2024-05-07 07:28] LABS: Hemoglobin A1C 5.8 % (<5.7)
[2024-05-07 07:53] LABS: Folic Acid 8.2 ng/mL (2.76->20)
--- NOTE | 2024-05-07 08:48 | WPDNEURCNPN ---
Assessment and Plan Assessment and plan (1) TIA (transient ischemic attack): Code(s): G45.9 - Transient cerebral ischemic attack, unspecified Status: Acute Plan 1. status post teeth removal and placement of the permanent denture 2. Complaint of dizziness some changes in mental status could very well be related to the relative dehydration, MRI is obtained to rule out the possibility of stroke is only consistent of mild nonspecific cerebral white matter disease on the basis of chronic small vessel ischemic disease, and the Doppler study of the carotid is normal. very well be related to the dehydration but considering the possibility of TIA echocardiogram has been obtained which is at present pending. In the meantime medication will be continued as such Consult date: 05/07/24 HPI: Richard Huizar is a 63 year old male admitted to the hospital through the emergency room for the complaints of dizziness in addition to the ongoing history of 1. Hypertension. Patient has had 4 lower teeth removed 6 days ago followed by 5 days ago permanent denture placed on his lower gum lines subsequently he developed nausea and dizziness and generalized weakness and also some change in his behavior in addition to the history of not drinking enough water, low-grade temperature, generalized malaise, with no history of any drug allergies, on initial exam in the emergency room was grossly nonfocal except was alert and oriented x1 was unsure whether he is in [facility] or [place] he is mention the year is 1924 unable to mention the name of the month vital signs were with blood pressure 156/98, pulse rate 109, temperature 99.3?, initial CBC normal, BMP with sodium only 131 routine lab normal with lactic acid only 1.2 and also negative for the influenza a B RSV and SARs COVID, CT head negative for the bleed, CT of the chest and abdomen with 4.4cm fusiform aneurysm of infrarenal aorta and Lizzeth Koul hernia containing nonobstructed small bowel, chest x-ray negative, currently patient is an everyday smoker, with smoking pack years of 22.5 former alcohol intake known drug allergies and admitted with the diagnosis of encephalopathy Review of Systems Review of Systems: All systems reviewed & are unremarkable except as noted in HPI and below [facility] Social History Social History Smoking packs per day: 0.5 Smoking cigarettes per day: 10.0 Years smoked: 45 Smoking pack-years: 22.50 Smoking status: Current every day smoker Tobacco type: cigarettes Alcohol intake: former Substance use: never Do You Feel Safe in your Home?: Yes Lack of Transportation: No Lack of Food: Never True Current Housing: I Have Housing Concerned About Future Housing: No Difficulty Paying Gas/Electric Bills: No Difficulty Paying for Meds: No Currently Unemployed: YES Education: High School Diploma/GED Difficulty w/ Childcare or Family Care: No Spiritual care concerns: No Meds Home Medications and Allergies Home Medications ?Medication ?Instructions ?Recorded ?Confirmed ?Type chlorhexidine gluconate 0.12 % 15 ml PO BID 05/07/24 05/07/24 History mouthwash Allergies Allergy/AdvReac Type Severity Reaction Status Date / Time No Known Allergies Allergy Verified 05/06/24 19:17 Vital Signs Vital Signs - 24 hr 05/06/24 19:11 05/06/24 22:08 05/07/24 01:27 Temperature 37.4 C Pulse Rate 109 H 95 93 Respiratory Rate 14 15 17 Blood Pressure 156/98 H 181/89 H 140/106 H Pulse Oximetry 94 95 95 Oxygen Delivery Room Air 05/07/24 01:31 05/07/24 03:45 05/07/24 05:58 Temperature 36.7 C 36.8 C Pulse Rate 87 75 Respiratory Rate 18 16 Blood Pressure 161/83 H 146/76 H 180/91 H Pulse Oximetry 94 94 Oxygen Delivery Exam Narrative: Revealed him to be awake alert cooperative in no obvious acute distress, head normocephalic with no bruit, ear nose throat examination normal, neck supple with no cervical bruit no thyromegaly no lymphadenopathy, heart regular with no murmur, lungs clear to auscultation with no rhonchi or crepitation, abdomen is soft nontender normal bowel sounds, neurologically he is awake alert oriented being in the hospital speech not dysphasic not dysarthric not dysphonic pupils round regular johnson of vision full extraocular movements full face symmetrical tongue midline motor examination revealed him to have no focal motor deficit reflexes are symmetrical and plantars are downgoing. Results Labs 05/06/24 21:59 05/06/24 21:59 Labs: Short CBC 05/06/24 Range/Units 21:59 WBC 11.7 H (4.5-10.0) K/mm3 Hgb 15.5 (14.0-18.0) g/dL Hct 43.8 (42.0-52.0) % Plt Count 167 (150-375) k/mm3 BMP 05/06/24 21:59 Sodium 131 L Potassium 4.6 Chloride 97 L Carbon Dioxide 26 BUN 11 Creatinine 1.00 Glucose 122 H Calcium 8.9 Cardiac Enzymes 05/06/24 Range/Units 21:59 Total Creatine Kinase 32 L (55-170) U/L Troponin I < 0.012 (0.000-0.034) ng/mL Liver Function 05/06/24 Range/Units 21:59 Total Bilirubin 1.0 (0.2-1.3) mg/dL AST 23 (17-59) U/L ALT 54 H (6-50) U/L Alkaline Phosphatase 72 (38-126) U/L Albumin 4.2 (3.5-5.1) g/dL Urine 05/06/24 Range/Units 23:46 Urine Color Yellow (Yellow) Urine Appearance Clear (Clear) Urine pH 7.5 (5.0-9.0) Ur Specific [place] 1.023 (1.001-1.035) Urine Protein Negative (Negative) mg/dL Urine Glucose (UA) Negative (Negative) mg/dL
[2024-05-07] MEDS: ENOXAPARIN 40 MG/0.4 ML SYRINGE SUB-Q (09:00)
[2024-05-07] MEDS: ATORVASTATIN 40 MG TABLET PO (09:00)
[2024-05-07] MEDS: ASPIRIN 81 MG ENTERIC TABLET PO (09:00)
[2024-05-07] MEDS: ACETAMINOPHEN 325 MG TABLET 650 MG PO (09:03)
--- NOTE | 2024-05-07 09:48 | PCSTNOTE ---
Please refer to the Bedside Swallow Evaluation in the EMR. Please note, silent aspiration cannot be ruled out at bedside.
--- NOTE | 2024-05-07 11:12 | IVDEFINITY ---
Echo completed, however pt unable to handle probe pressure, pt refused bubble study.
[2024-05-07] MEDS: CYANOCOBALAMIN INJ 1,000 MCG/ML VIAL 1000 MCG IM (14:30)
[2024-05-07] MEDS: METOPROLOL TARTRATE 12.5 MG TABLET PO (21:07)
[2024-05-08] VITALS (11 sets, daily range): BP systolic 130–152; BP diastolic 68–80; PULSE 66–77; RESP 16–19; TEMP 36.6–36.7; O2SAT 97
[2024-05-08 05:29] LABS: Hematocrit 43.1 % (42.0-52.0); Hemoglobin 15.2 g/dL (14.0-18.0); Mean Corpuscular HGB Conc 35.3 g/dl (32-36); Mean Corpuscular Hemoglobin 31.2 pg (26-34); Mean Corpuscular Volume 88.5 fl (80-100); Mean Platelet Volume 9.8 fl (7.4-10.4); Platelet Count Result 196 k/mm3 (150-375); Red Blood Count 4.87 M/mm3 (4.6-6.20); White Blood Count 9.6 K/mm3 (4.5-10.0)
[2024-05-08 05:47] LABS: Alanine Aminotransferase 44 U/L (6-50); Albumin Level 4.2 g/dL (3.5-5.1); Alkaline Phosphatase 61 U/L (38-126); Anion Gap 12 mmol/L (4-12); Aspartate Amino Transferase 22 U/L (17-59); Bilirubin,Total 1.1 mg/dL (0.2-1.3); Blood Urea Nitrogen 15 mg/dL (9-20); Calcium 8.8 mg/dL (8.4-10.2); Carbon Dioxide 24 mmol/L (22-30); Chloride 97 mmol/L (98-107); Estimated CRCL calculation 106 ml/min; Estimated Glomerular Filt Rate > 60; Glucose 103 mg/dL (65-110); Potassium 4.1 mmol/L (3.4-5.0); Sodium 133 mmol/L (137-145)
--- NOTE | 2024-05-08 07:04 | PM.IMPN ---
Progress Note: A&P Assessment and Plan (1) Encephalopathy: Code(s): G93.40 - Encephalopathy, unspecified Status: Acute Assessment and Plan: Recent dental procedure with dental implants on april 30 Possible etiology includes TIA vs stroke vs infection vs dehydration - A1c, Lipid panel WNL, Folate WNL, B12 low given IM x1 and started on supplementation 1000 mg daily - Viral panel negative, UA unremarkable, UDS positive for cannabinoids - CT head and maxillofacial negative, CXR unremarkable - Carotid duplex: < 50% stenosis of bilateral internal carotid artery - MRI: Mild nonspecific cerebral white matter disease and pontine disease, which likely represents chronic small vessel ischemic disease. - Echo: LVEF 55-60% with aortic root measuring 4.7 in diameter - CT chest/abdomen/pelvis: Ectasia of ascending aorta measuring 4.7 cm. 4.4 cm fusiform aneurysm of infrarenal aorta. Umbilical hernia containing nonobstructed small bowel. Gallbladder distention, which may be secondary to fasting - Started on asa, Lipitor and IVF - Started on Augmentin for possible oral infection related to recent dental procedure. Per oral surgeon patient to be on this for 7 days post op. - Monitor CBC, CMP, magnesium, troponin, and lipid profile - Monitor blood pressure, allow for permissive hypertension. - Telemetry monitoring - Monitor blood glucose - PT/OT eval and treat - Neurology consulted, appreciate assistance and recommendations Patient continues to be more confused per in baseline. He is currently alert and oriented x3 however remains slow to answer questions and notes intermittent difficulty with word finding. (2) Aortic aneurysm: Code(s): I71.9 - Aortic aneurysm of unspecified site, without rupture Status: Acute Assessment and Plan: - Echo: LVEF 55-60% with aortic root measuring 4.7 in diameter. Recommending CTA. - CT chest/abdomen/pelvis: Ectasia of ascending aorta measuring 4.7 cm. 4.4 cm fusiform aneurysm of infrarenal aorta. - CTA chest abdomen pelvis ordered to further evaluate aneurysms Ectasia of the ascending and descending aorta, measuring up to 4.4 cm and 3.3 cm respectively. Gallbladder hydrops, with mild irregular wall thickening. Correlate with biliary labs and symptoms of right upper quadrant pain. Hepatomegaly. 4.5 cm fusiform infrarenal abdominal aortic aneurysm. DENISSE occlusion. Severe stenoses at the origin of the right common iliac artery and the left iliac bifurcation. Urinary bladder wall thickening with hyperdense intraluminal material, presumably secondary to outlet compromise from prostatomegaly and contrast excretion. Correlate with urinalysis. - Patient has been hypertensive since admission with BP in the 40-170s systolic, per uptodate beta blockers are suggested to limit further aortic expansion Started on metoprolol 12.5 mg BID, remains on lipitor 40 mg daily for cocurrent TIA concern - Patient will require vascular follow up at discharge (3) Tobacco use: Code(s): Z72.0 - Tobacco use Status: Acute Assessment and Plan: Smokes 1PPD counseled about cessation Time Spent With Patient Time with patient: 25 - 35 minutes Subjective Date/time seen: 05/08/24 07:04 Interval history: 63 year old male with no significant past medical history but had recent oral surgery with dental implants on April 30 who presented to the hospital for altered mental status and gait instability. Patient is pleasant sitting up comfortably in his chair. Patient continues to be more confused per in baseline. He is currently alert and oriented x3 however remains slow to answer questions and notes intermittent difficulty with word finding. He currently has no complaints denying any chest pain, shortness a breath, palpitations, nausea/vomiting and abdominal pain. Review of Systems Review of Systems: All systems reviewed & are unremarkable except as noted in HPI and below Exam Narrative: AF HR 72 RR 19 Spo2 97 BP 138/68 General: male in no acute respiratory distress who is nontoxic appearing, lying semi recumbent in bed. HEENT: Normocephalic. Atraumatic. Extraocular movement intact. Sclera clear and anicteric. No facial asymmetry. Neck: Neck was supple. No dominant adenopathy, thyromegaly or masses. Chest: Lungs are clear to auscultation bilaterally. No wheezes or crackles. CV: Heart was regular rate and rhythm. Abd: Abdomen was soft. Nontender. Nondistended. Positive bowel sounds. No organomegaly or masses. Ext: No clubbing, cyanosis, or edema. DP pulses bilaterally. Neuro: Patient is alert and oriented x3, slow to answer. Strength is 5/5 in both upper and lower extremities. Able to name 5 colrs and animals. No upper extremity drift. Cranial nerves 2-12 are intact. Speech is clear. Objective Data Vital Signs Vital Signs: Vital Signs - 24 hr 05/07/24 08:57 05/07/24 09:00 05/07/24 09:03 Temperature 97.9 F Pulse Rate 77 77 Respiratory Rate 18 18 Blood Pressure 162/78 H Pulse Oximetry 98 92 92 Oxygen Delivery Room Air Room Air 05/07/24 14:00 05/07/24 16:00 05/07/24 20:00 Temperature 97.6 F Pulse Rate 84 75 Respiratory Rate 16 Blood Pressure 152/96 H Pulse Oximetry 100 Oxygen Delivery Room Air 05/07/24 20:00 05/07/24 20:58 05/07/24 21:07 Temperature 98.5 F Pulse Rate 79 79 79 Respiratory Rate 14 Blood Pressure 143/80 H Pulse Oximetry 95 Oxygen Delivery 05/08/24 00:00 05/08/24 04:00 Temperature Pulse Rate 77 74 Respiratory Rate Blood Pressure Pulse Oximetry Oxygen Delivery Intake/Output Intake/Output: Intake & Output 05/05/24 05/06/24 05/07/24 05/08/24 23:59 23:59 23:59 23:59 Intake Total 1360 Balance 1360 Meds/Results Medications: Active Medications Generic Name Dose Route Start Last Admin Trade Name Freq PRN Reason Stop Dose Admin Acetaminophen 650 mg 05/07/24 04:34 05/07/24 09:03 Acetaminophen 325 Mg Tablet PO 650 mg Q4H PRN Administration Mild Pain (1-3) or Fever Aspirin 81 mg 05/07/24 09:00 05/07/24 09:00 Aspirin 81 Mg Enteric Tablet PO 81 mg QAM MARION Administration Atorvastatin Calcium 40 mg 05/07/24 09:00 05/07/24 09:00 Atorvastatin 40 Mg Tablet PO 40 mg DAILY MARION Administration Cyanocobalamin 1,000 mcg 05/08/24 09:00 Cyanocobalamin 1,000 Mcg Tablet PO QAM MARION Enoxaparin Sodium 40 mg 05/07/24 09:00 05/07/24 09:00 Enoxaparin 40 Mg/0.4 Ml Syringe SUB-Q 40 mg DAILY MARION Administration Metoprolol Tartrate 12.5 mg 05/07/24 21:00 05/07/24 21:07 Metoprolol Tartrate 12.5 Mg Tablet PO 12.5 mg Q12HR MARION Administration Ondansetron HCl 4 mg 05/07/24 04:34 Ondansetron Inj 4 Mg/2 Ml Vial IV PUSH Q4H PRN Nausea Perflutren Lipid Microsphere 0 ml 05/07/24 05:24 Perflutren Lipid Microspheres 1.5 Ml Vial Diluted To 10 Ml Total Volume IV PUSH 05/10/24 05:25 ONCE PRN adequate visualization Protocol Radiology Results: ITS Impressions Chest X-Ray 05/07/24 05:46 IMPRESSION: 1. No acute cardiopulmonary disease. Head CT 05/07/24 05:54 IMPRESSION: 1. Normal aging brain. Face CT 05/07/24 06:45 IMPRESSION: 1. No etiology for the patient's symptoms. Chest/Abdomen/Pelvis CT 05/07/24 07:49 IMPRESSION: 1. 4.4 cm fusiform aneurysm of infrarenal aorta. 2. Umbilical hernia containing nonobstructed small bowel. 3. Gallbladder distention, which may be secondary to fasting. Correlate with physical exam to exclude acute cholecystitis. Carotid Doppler Study 05/07/24 08:19 IMPRESSION: 1. <50% stenosis in the right internal carotid artery. 2. <50% stenosis in the left internal carotid artery. Brain MRI 05/07/24 09:00 IMPRESSION: 1. Mild nonspecific cerebral white matter disease and pontine disease, which likely represents chronic small vessel ischemic disease. Chest/Abdomen/Pelvis CTA 05/07/24 23:04 IMPRESSION: Ectasia of the ascending and descending aorta, measuring up to 4.4 cm and 3.3 cm respectively. Gallbladder hydrops, with mild irregular wall thickening. Correlate with biliary labs and symptoms of right upper quadrant pain. Hepatomegaly. 4.5 cm fusiform infrarenal abdominal aortic aneurysm. DENISSE occlusion. Severe stenoses at the origin of the right common iliac artery and the left iliac bifurcation. Urinary bladder wall thickening with hyperdense intraluminal material, presumably secondary to outlet compromise from prostatomegaly and contrast excretion. Correlate with urinalysis. Labs Labs: Laboratory Results - last 24 hr 05/07/24 05/08/24 06:31 05:06 WBC 9.6 RBC 4.87 Hgb 15.2 Hct 43.1 MCV 88.5 MCH 31.2 MCHC 35.3 RDW 12.0 Plt Count 196 MPV 9.8 Sodium 133 L Potassium 4.1 Chloride 97 L Carbon Dioxide 24 Anion Gap 12 BUN 15 Creatinine 0.81 Estim Creat Clear Calc 106 Estimated GFR > 60 Glucose 103 Hemoglobin A1c 5.8 H Calcium 8.8 Total Bilirubin 1.1 AST 22 ALT 44 Alkaline Phosphatase 61 Total Protein 7.0 Albumin 4.2 LDL Cholesterol Direct 128 Vitamin B12 219.0 L Folate 8.2 Quality VTE Prophylaxis VTE prophylaxis: pharmacologic ordered
[2024-05-08] MEDS: ASPIRIN 81 MG ENTERIC TABLET PO (09:16)
[2024-05-08] MEDS: ATORVASTATIN 40 MG TABLET PO (09:17)
[2024-05-08] MEDS: CYANOCOBALAMIN 1,000 MCG TABLET 1000 MCG PO (09:17)
[2024-05-08] MEDS: ENOXAPARIN 40 MG/0.4 ML SYRINGE SUB-Q (09:17)
[2024-05-08] MEDS: METOPROLOL TARTRATE 12.5 MG TABLET PO ×2 (09:17→21:24)
[2024-05-08] MEDS: ACETAMINOPHEN 325 MG TABLET 650 MG PO (09:23)
[2024-05-08] MEDS: CHLORHEXIDINE GLUCONATE 0.12% ORAL RINSE 473 ML BTL (*BKC) 15 ML SWISH/SPIT ×2 (11:32→17:49)
[2024-05-09] VITALS: PULSE 70
[2024-05-09 04:00] VITALS: PULSE 66
[2024-05-09 04:45] VITALS: BP 140/96; PULSE 88; RESP 18; TEMP 36.6; O2SAT 97
[2024-05-09 05:26] LABS: Hematocrit 44.5 % (42.0-52.0); Hemoglobin 15.7 g/dL (14.0-18.0); Mean Corpuscular HGB Conc 35.3 g/dl (32-36); Mean Corpuscular Hemoglobin 31.4 pg (26-34); Mean Platelet Volume 10.1 fl (7.4-10.4); Platelet Count Result 209 k/mm3 (150-375); White Blood Count 9.4 K/mm3 (4.5-10.0)
[2024-05-09 05:28] LABS: Alanine Aminotransferase 43 U/L (6-50); Albumin Level 4.2 g/dL (3.5-5.1); Alkaline Phosphatase 57 U/L (38-126); Anion Gap 10 mmol/L (4-12); Aspartate Amino Transferase 22 U/L (17-59); Blood Urea Nitrogen 18 mg/dL (9-20); Calcium 9.1 mg/dL (8.4-10.2); Carbon Dioxide 27 mmol/L (22-30); Chloride 97 mmol/L (98-107); Estimated CRCL calculation 98 ml/min; Estimated Glomerular Filt Rate > 60; Glucose 94 mg/dL (65-110); Potassium 4.5 mmol/L (3.4-5.0); Sodium 134 mmol/L (137-145)
[2024-05-09 08:00] VITALS: PULSE 91
[2024-05-09 08:08] VITALS: PULSE 95
[2024-05-09] MEDS: ATORVASTATIN 40 MG TABLET PO (08:08)
[2024-05-09] MEDS: ASPIRIN 81 MG ENTERIC TABLET PO (08:08)
[2024-05-09] MEDS: ENOXAPARIN 40 MG/0.4 ML SYRINGE SUB-Q (08:08)
[2024-05-09] MEDS: METOPROLOL TARTRATE 12.5 MG TABLET PO (08:08)
[2024-05-09] MEDS: CYANOCOBALAMIN 1,000 MCG TABLET 1000 MCG PO (08:08)
[2024-05-09] MEDS: CHLORHEXIDINE GLUCONATE 0.12% ORAL RINSE 473 ML BTL (*BKC) 15 ML SWISH/SPIT (08:09)
--- NOTE | 2024-05-09 14:21 | P.DS_ITS ---
DS: Admitting Diagnosis Discharge Date 05/09 Admitting Diagnosis ams DS: Discharge Diagnosis Discharge Diagnosis (1) Encephalopathy: Code(s): G93.40 - Encephalopathy, unspecified Status: Acute (2) Aortic aneurysm: Code(s): I71.9 - Aortic aneurysm of unspecified site, without rupture Status: Acute (3) Tobacco use: Code(s): Z72.0 - Tobacco use Status: Acute DS: Summary Hospital Course Hospital Course: 63 year old male with no significant past medical history but had recent oral surgery with dental implants on April 30 who presented to the hospital for altered mental status and gait instability. Several issues were addressed: # Encephalopathy Recent dental procedure with dental implants on april 30 Possible etiology includes TIA vs stroke vs infection vs dehydration - A1c, Lipid panel WNL, Folate WNL, B12 low given IM x1 and started on supplementation 1000 mg daily - Viral panel negative, UA unremarkable, UDS positive for cannabinoids - CT head and maxillofacial negative, CXR unremarkable - Carotid duplex: < 50% stenosis of bilateral internal carotid artery - MRI: Mild nonspecific cerebral white matter disease and pontine disease, which likely represents chronic small vessel ischemic disease. - Echo: LVEF 55-60% with aortic root measuring 4.7 in diameter - CT chest/abdomen/pelvis: Ectasia of ascending aorta measuring 4.7 cm. 4.4 cm fusiform aneurysm of infrarenal aorta. Umbilical hernia containing nonobstructed small bowel. Gallbladder distention, which may be secondary to fasting - Started on asa, Lipitor and IVF - Started on Augmentin for possible oral infection related to recent dental procedure. Per oral surgeon patient to be on this for 7 days post op. Mentation improved. # Aortic aneurysm of unspecified site, without rupture - Echo: LVEF 55-60% with aortic root measuring 4.7 in diameter. Recommending CTA. - CT chest/abdomen/pelvis: Ectasia of ascending aorta measuring 4.7 cm. 4.4 cm fusiform aneurysm of infrarenal aorta. - CTA chest abdomen pelvis ordered to further evaluate aneurysms Ectasia of the ascending and descending aorta, measuring up to 4.4 cm and 3.3 cm respectively. Gallbladder hydrops, with mild irregular wall thickening. Correlate with biliary labs and symptoms of right upper quadrant pain. Hepatomegaly. 4.5 cm fusiform infrarenal abdominal aortic aneurysm. DENISSE occlusion. Severe stenoses at the origin of the right common iliac artery and the left iliac bifurcation. Urinary bladder wall thickening with hyperdense intraluminal material, presumably secondary to outlet compromise from prostatomegaly and contrast excretion. Correlate with urinalysis. - Patient has been hypertensive since admission with BP in the 40-170s systolic, per uptodate beta blockers are suggested to limit further aortic expansion Started on metoprolol 12.5 mg BID, remains on lipitor 40 mg daily for cocurrent TIA concern -continue, rx sent - Patient will require vascular follow up at discharge Status at Discharge Functional status at discharge: independent ambulation Overall status at discharge: patient is progressing back to baseline Time Spent with Patient Time attestation: Total time spent providing and/or coordinating discharge services: Time spent: Greater than 30 minutes Exam Narrative: General: male in no acute respiratory distress who is nontoxic appearing, lying semi recumbent in bed. HEENT: Normocephalic. Atraumatic. Extraocular movement intact. Sclera clear and anicteric. No facial asymmetry. Neck: Neck was supple. No dominant adenopathy, thyromegaly or masses. Chest: Lungs are clear to auscultation bilaterally. No wheezes or crackles. CV: Heart was regular rate and rhythm. Abd: Abdomen was soft. Nontender. Nondistended. Positive bowel sounds. No organomegaly or masses. Ext: No clubbing, cyanosis, or edema. DP pulses bilaterally. Neuro: Patient is alert and oriented x3, slow to answer. Strength is 5/5 in both upper and lower extremities. Able to name 5 colrs and animals. No upper extremi ty drift. Cranial nerves 2-12 are intact. Speech is clear. Const: General: comfortable DS: Data Data Completed and Pending Completed studies during hospitalization: ct abd/pelvis, brain mri Labs on day of discharge: Labs from last 24 hours 05/09/24 04:37 WBC 9.4 RBC 5.00 Hgb 15.7 Hct 44.5 MCV 89.0 MCH 31.4 MCHC 35.3 RDW 12.0 Plt Count 209 MPV 10.1 Sodium 134 L Potassium 4.5 Chloride 97 L Carbon Dioxide 27 Anion Gap 10 BUN 18 Creatinine 0.88 Estim Creat Clear Calc 98 Estimated GFR > 60 Glucose 94 Calcium 9.1 Total Bilirubin 1.0 AST 22 ALT 43 Alkaline Phosphatase 57 Total Protein 7.0 Albumin 4.2 Preliminary micro results at discharge 05/06/24 22:55 Blood Culture - Preliminary Blood 05/06/24 22:55 Blood Culture - Preliminary Blood Discharge Plan Discharge Attending physician on discharge: Salvador Yun Consulting providers: Niels Panchal; Nellie Martinez Discharging Clinician: Keysha Cason Patient Disposition: Home Health Service Diet: regular Discharge Instructions: You were admitted for altered mental status. Neurology was consulted. NO acute findings. Your vit b12 levels were very low- we started you on daily supplements. please follow up vascular surgeon for aortic aneurism. Make sure your BP is well controlled. You were started on metoprolol 12.5 mg t wice a day, continue lipitor 40 mg daily for TIA concern. PLease make sure you f/u with neurology. Patient Instructions: Antibiotic Form Patient Language: Tajik Stand Alone Forms: General Discharge Information Follow-up/Referrals: Nellie Martinez MD [Physician] - 2 Weeks Niels Panchal MD [Physician] - 2 Weeks Discharge Medications: New atorvastatin 40 mg Tablet 40 mg PO DAILY Qty: 90 0RF cyanocobalamin (vitamin B-12) [Vitamin B-12] 1,000 mcg Tablet 1,000 mcg PO QAM 90 Days Qty: 90 0RF aspirin 81 mg Tablet,Delayed Release (Dr/Ec) 81 mg PO QAM Qty: 90 0RF amoxicillin-pot clavulanate 875-125 mg tablet 1 tablet PO Q12H Qty: 14 0RF metoprolol tartrate 25 mg tablet 12.5 mg PO BID Qty: 90 0RF Continued chlorhexidine gluconate 0.12 % mouthwash 15 ml PO BID Date of admission: 05/07/24 04:34 Primary Care Provider: PHYSICIAN,[employer]IC Admitting Provider: Jerel Rivera Attending physician on admission: Dianna Covington Condition: Stable Quality VTE Prophylaxis VTE prophylaxis: pharmacologic ordered Hospitalist MIPS Heart Failure (Exclusion) Patient has history of Heart Transplant or Left Ventricular Assistive Device?: No IF YES, STOP HERE Heart Failure (Qualifier) Patient has current or prior documentation of LVEF less than or equal to 40%, or mod/servere depressed LVSF?: No IF NO, STOP HERE
== END 2024-05-09 15:40 | disposition home or self-care (01) ==
LOC: ANHED 05-07 04:34 → ANH2MED 05-07 06:45
PROVIDERS: Physician Assistant; Admitting Provider Internal Medicine; Emergency Provider Student in an Organized Health Care Education/Training Program; Visit Provider Student in an Organized Health Care Education/Training Program
DX: G93.40 Encephalopathy, unspecified (principal); I71.43 Infrarenal abdominal aortic aneurysm, without rupture; I10 Essential (primary) hypertension; R26.89 Other abnormalities of gait and mobility; F17.210 Nicotine dependence, cigarettes, uncomplicated; Z20.822 Contact with and (suspected) exposure to COVID-19; Z96.5 Presence of tooth-root and mandibular implants
CPT/HCPCS: 36415; 70450; 70487; 70553; 71045; 71250; 71275; 74174; 74176; 80053; 80061; 80307; 81003; 82077; 82550; 82607; 82746; 83036; 83605; 83690; 84443; 84484; 85025; 85027; 85610; 85730; 87040; 87637; 92610; 93005; 93306; 93880; 96361; 96372; 96374; 96375; 96376; 97110; 97161; 97165; 97530; 97535; 99285; A9248; A9270; A9579; G0378; J1650; J2405; J3420; J7030; Q9967